=== PATIENT | male | born 1940 | race Caucasian/White ===

== ENCOUNTER 2019-10-17 05:56 | Inpatient (IN) | payer MEDICARE ==
[2019-10-17] MEDS ORDERED: Ketamine 50 MG/ML (10ML VIAL) ONE ×2 (06:09→06:58)
[2019-10-17 06:12] LABS: #Eosinphils 0.1 thou/uL (0.0-0.7); #Lymphocytes 1.5 thou/uL (1.20-3.40); #Monocytes 0.8 thou/uL (0.11-0.59); %Basophils 0.1 % (0.0-1.0); %Eosinophils 0.7 % (0.0-10.0); %Lymphocytes 10.4 % (21.0-51.0); %Monocytes 5.2 % (0.0-10.0); %Neutrophils 83.5 % (42.0-75.0); Hemoglobin 15.6 g/dL (14.0-18.0); Mean Corpuscular HGB CONC 33.9 g/dL (32.0-36.0); Mean Corpuscular Hemoglobin 32.5 pg (27.0-31.0); Mean Platelet Volume 8.2 fL (7.4-10.4); Platelet Count 280 thou/uL (130-400); RBC Distribution Width 12.9 % (11.5-14.5); White Blood Cell (WBC) Count 14.4 thou/uL (4.8-10.8)
[2019-10-17 06:16] LABS: INR-International Normal Ratio 1.2; PTT 31.3 SEC (22.9-36.1); Prothrombin Time 15.5 SEC (12.0-14.7)
[2019-10-17] MEDS ORDERED: Adacel (T-DAP) 0.5 ML SYRINGE ONE (06:17)
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
[2019-10-17 07:07] LABS: ALT (SGPT) 79 U/L (8-55); AST (SGOT) 128 U/L (5-34); Albumin 4.5 g/dL (3.4-4.8); Alkaline Phosphatase 54 U/L (40-110); Anion Gap 24 mmol/L (10-20); BUN (Urea Nitrogen) 17 mg/dL (8.4-25.7); Calc. Creatinine Clearance 0 mL/min (70-130); Calcium 9.3 mg/dL (7.8-10.44); Carbon Dioxide 18 mmol/L (23-31); Chloride 97 mmol/L (98-107); Estimated GFR-MDRD 35; Globulin 2.9 g/dL (2.4-3.5); Glucose 234 mg/dL (83-110); Potassium 3.7 mmol/L (3.5-5.1); Protein, Total 7.4 g/dL (5.8-8.1); Sodium 135 mmol/L (136-145)
[2019-10-17 07:20] LABS: Lactic Acid 4.6 mmol/L (0.5-2.2)
[2019-10-17] MEDS ORDERED: PROPOFOL 20 ML ONE (07:24)
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
--- NOTE | 2019-10-17 08:23 | RAD ---
PORTABLE CHEST 1 VIEW: DATE: 10/17/2019. TIME: 5:59 a.m. FINDINGS/IMPRESSION: Comparison is made with the earlier exam of 5:38 a.m. There has been interval placement of a left-sided central venous catheter with tip in the projection of the SVC. No pneumothoraces are seen. There are patchy opacities in the right lung. POS: [facility]
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
[2019-10-17] MEDS ORDERED: Hydrocortisone Sod Succ/PF 100 mg/2 ml Vial IVP SCH (08:30)
[2019-10-17] MEDS ORDERED: Dextrose 5% in Water 1,000 ML IV PRN ×2 (08:49→09:00)
[2019-10-17] MEDS ORDERED: Dextrose 50% Abboject 50 ML SYRINGE SLOW IVP PRN ×2 (08:49→09:00)
[2019-10-17] MEDS ORDERED: Insulin Regular 300 UNITS/3 ML VIAL SC PRN (08:49)
[2019-10-17] MEDS ORDERED: Cyclobenzaprine 10 MG TAB PO PRN (09:00)
[2019-10-17] MEDS ORDERED: Ondansetron ODT 4 MG TAB PO PRN (09:00)
[2019-10-17] MEDS ORDERED: traMADol HCl 50 MG TAB PO PRN (09:00)
[2019-10-17] MEDS ORDERED: Sodium Chloride 0.9% 1,000 ML IV SCH (09:00)
[2019-10-17] MEDS ORDERED: hydrALAZINE 20 MG/ML VIAL SLOW IVP PRN (09:00)
[2019-10-17] MEDS ORDERED: Famotidine/PF 20 mg/2ml Vial SLOW IVP SCH (09:00)
[2019-10-17] MEDS ORDERED: Ondansetron PF 4 MG/2 ML Vial IVP PRN (09:00)
[2019-10-17] MEDS: Acetaminophen 500 MG TAB PO SCH ×3 (09:48→20:39)
[2019-10-17] MEDS: Sodium Bicarbonate 150 MEQ in Dextrose 5% in Water 1,000 ML IV SCH ×2 (09:48→22:43)
--- NOTE | 2019-10-17 10:28 | RAD ---
RIGHT SHOULDER 2 VIEWS: HISTORY: Status post reduction of shoulder dislocation. COMPARISON: 10/17/2019. FINDINGS: The glenohumeral joint previously noted dislocation has been reduced. Minimally displaced fracture t hrough the mid right clavicle. Patchy alveolar parenchymal change in the right mid lung zone, eviden ce for contusion. IMPRESSION: Reduction of the previously noted anterior subcoracoid dislocation. Evidence for a Hill-Sachs osteoc hondral impaction injury. POS: [facility]
[2019-10-17 10:40] VITALS: BMI 25.2
[2019-10-17 10:42] LABS: Magnesium 2.1 mg/dL (1.6-2.6); Phosphorus 2.9 mg/dL (2.3-4.7)
[2019-10-17] MEDS: Insulin Regular 300 UNITS/3 ML VIAL SC PRN ×2 (11:25→15:58)
[2019-10-17] MEDS: traMADol HCl 50 MG TAB PO PRN ×2 (11:25→16:49)
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
[2019-10-17 12:24] LABS: Lactic Acid 2.2 mmol/L (0.5-2.2)
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
[2019-10-17] MEDS ORDERED: Prevnar 13-Val Conj/PF 0.5 ML SYRINGE IM ONE (12:45)
[2019-10-17] MEDS ORDERED: Iopamidol 370 76% 100 ML VIAL ONE (13:41)
[2019-10-17] MEDS ORDERED: diphenhydrAMINE 50 MG/ML VIAL IVP SCH (17:30)
[2019-10-17] MEDS ORDERED: diphenhydrAMINE 50 MG CAP PO SCH (18:15)
[2019-10-17] MEDS: Gabapentin 100 MG CAP PO SCH (20:40)
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
[2019-10-18] MEDS: Acetaminophen 500 MG TAB PO SCH ×3 (03:08→15:49)
[2019-10-18 05:02] LABS: Anion Gap 9 mmol/L (10-20); BUN (Urea Nitrogen) 21 mg/dL (8.4-25.7); Calc. Creatinine Clearance 53 mL/min (70-130); Calcium 7.7 mg/dL (7.8-10.44); Carbon Dioxide 30 mmol/L (23-31); Chloride 100 mmol/L (98-107); Estimated GFR-MDRD 60; Glucose 106 mg/dL (83-110); Phosphorus 3.6 mg/dL (2.3-4.7); Potassium 3.2 mmol/L (3.5-5.1); Sodium 136 mmol/L (136-145)
[2019-10-18 06:05] LABS: #Lymphocytes 0.7 thou/uL (1.20-3.40); #Monocytes 0.6 thou/uL (0.11-0.59); #Neutrophils 6.2 thou/uL (1.40-6.50); %Basophils 0.3 % (0.0-1.0); %Eosinophils 0.2 % (0.0-10.0); %Lymphocytes 8.7 % (21.0-51.0); %Monocytes 7.4 % (0.0-10.0); %Neutrophils 83.5 % (42.0-75.0); Hemoglobin 10.9 g/dL (14.0-18.0); Mean Corpuscular HGB CONC 35.5 g/dL (32.0-36.0); Mean Corpuscular Hemoglobin 32.8 pg (27.0-31.0); Mean Corpuscular Volume 92.4 fL (78.0-98.0); Mean Platelet Volume 8.8 fL (7.4-10.4); Platelet Count 133 thou/uL (130-400); RBC Distribution Width 13.2 % (11.5-14.5); Red Blood Cell (RBC) Count 3.32 mill/uL (4.70-6.10); White Blood Cell (WBC) Count 7.4 thou/uL (4.8-10.8)
[2019-10-18] MEDS ORDERED: Potassium Phosphate 30 MMOL in Sodium Chloride 0.9% 500 ML IVPB SCH (07:30)
[2019-10-18] MEDS: Famotidine/PF 20 mg/2ml Vial SLOW IVP SCH (09:50)
[2019-10-18] MEDS: Gabapentin 100 MG CAP PO SCH (09:55)
[2019-10-18] MEDS ORDERED: Sodium Chloride 0.9% 1,000 ML IV SCH (16:15)
[2019-10-18] MEDS ORDERED: Acetaminophen 500 MG TAB PO SCH (16:53)
--- NOTE | 2019-10-18 17:03 | RAD ---
KUB INDICATION: NG tube placement COMPARISON: None FINDINGS: Bowel gas: Nonspecific but without overt appearance of obstruction. Lung bases: Clear. Additional findings: Nasogastric tube projects in the region of the gastric fundus. Osseous structures: No acute osseous abnormality is demonstrated. IMPRESSION: 1. Nasogastric tube tip projects in the region of the gastric fundus
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
[2019-10-18] MEDS: Acetaminophen 650 MG/20.3 ML UDCUP PER TUBE SCH (19:30)
[2019-10-18] MEDS: Ibuprofen 100 MG/5 ML UDCUP PO SCH (20:51)
[2019-10-19] MEDS: traMADol HCl 50 MG TAB PO PRN ×2 (03:00→20:17)
[2019-10-19] MEDS: Acetaminophen 650 MG/20.3 ML UDCUP PER TUBE SCH ×4 (03:02→20:01)
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
[2019-10-19 05:41] LABS: #Lymphocytes 0.5 thou/uL (1.20-3.40); #Monocytes 0.6 thou/uL (0.11-0.59); %Basophils 0.5 % (0.0-1.0); %Eosinophils 0.3 % (0.0-10.0); %Lymphocytes 8.2 % (21.0-51.0); %Neutrophils 82.1 % (42.0-75.0); Hemoglobin 10.6 g/dL (14.0-18.0); Mean Corpuscular HGB CONC 34.5 g/dL (32.0-36.0); Mean Corpuscular Hemoglobin 32.4 pg (27.0-31.0); Mean Corpuscular Volume 93.7 fL (78.0-98.0); Mean Platelet Volume 8.1 fL (7.4-10.4); Platelet Count 111 thou/uL (130-400); RBC Distribution Width 13.1 % (11.5-14.5); Red Blood Cell (RBC) Count 3.27 mill/uL (4.70-6.10); White Blood Cell (WBC) Count 6.1 thou/uL (4.8-10.8)
[2019-10-19] MEDS: Ibuprofen 100 MG/5 ML UDCUP PO SCH ×3 (05:42→21:27)
[2019-10-19 06:00] LABS: Anion Gap 8 mmol/L (10-20); BUN (Urea Nitrogen) 18 mg/dL (8.4-25.7); Calc. Creatinine Clearance 64 mL/min (70-130); Calcium 8.3 mg/dL (7.8-10.44); Carbon Dioxide 29 mmol/L (23-31); Chloride 102 mmol/L (98-107); Estimated GFR-MDRD 74; Glucose 118 mg/dL (83-110); Magnesium 2.1 mg/dL (1.6-2.6); Phosphorus 2.6 mg/dL (2.3-4.7); Potassium 3.4 mmol/L (3.5-5.1); Sodium 136 mmol/L (136-145)
[2019-10-19] MEDS ORDERED: Potassium Phosphate 15 MMOL in Sodium Chloride 0.9% 250 ML 250 ML IVPB SCH (08:00)
[2019-10-19] MEDS: Famotidine/PF 20 mg/2ml Vial SLOW IVP SCH (09:13)
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
[2019-10-19] MEDS: Enoxaparin Sodium 40 MG/0.4 ML SYRINGE SC SCH (20:02)
[2019-10-20] MEDS: Acetaminophen 650 MG/20.3 ML UDCUP PER TUBE SCH ×4 (01:35→19:56)
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
[2019-10-20 06:25] LABS: Anion Gap 8 mmol/L (10-20); BUN (Urea Nitrogen) 17 mg/dL (8.4-25.7); Calc. Creatinine Clearance 78 mL/min (70-130); Calcium 8.6 mg/dL (7.8-10.44); Carbon Dioxide 29 mmol/L (23-31); Chloride 104 mmol/L (98-107); Estimated GFR-MDRD Greater than 90; Glucose 92 mg/dL (83-110); Magnesium 1.9 mg/dL (1.6-2.6); Phosphorus 2.2 mg/dL (2.3-4.7); Potassium 3.4 mmol/L (3.5-5.1); Sodium 138 mmol/L (136-145)
[2019-10-20] MEDS: Ibuprofen 100 MG/5 ML UDCUP PO SCH ×3 (06:29→19:57)
[2019-10-20] MEDS ORDERED: Potassium Chloride 20 MEQ in Premix Bag 1 BAG IVPB SCH (07:45)
[2019-10-20] MEDS ORDERED: Potassium Phosphate 30 MMOL in Sodium Chloride 0.9% 500 ML IVPB SCH (07:45)
[2019-10-20] MEDS ORDERED: Potassium Phosphate 30 MMOL in Sodium Chloride 0.9% 250 ML 250 ML IVPB SCH (08:00)
[2019-10-20] MEDS: Ascorbic Acid 500 mg Chewable Tablet PO SCH ×2 (09:18→19:57)
[2019-10-20] MEDS: Famotidine 20 MG TAB PER TUBE SCH ×2 (09:18→19:56)
[2019-10-20] MEDS: Senokot S 8.6-50 MG TAB PO SCH ×2 (09:18→19:57)
[2019-10-20] MEDS: Ferrous Sulfate 325 MG TAB PO SCH ×2 (09:18→17:00)
[2019-10-20] MEDS: Polyethylene Glycol 3350 17 GM Packet PO SCH (09:18)
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
[2019-10-20] MEDS: traMADol HCl 50 MG TAB PO PRN (17:00)
[2019-10-20] MEDS: Enoxaparin Sodium 40 MG/0.4 ML SYRINGE SC SCH (19:57)
[2019-10-20] MEDS ORDERED: Haloperidol Lactate 5 MG/ML VIAL SLOW IVP SCH (21:15)
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
[2019-10-21] MEDS: Acetaminophen 650 MG/20.3 ML UDCUP PER TUBE SCH ×2 (01:31→10:20)
[2019-10-21] MEDS: Ibuprofen 100 MG/5 ML UDCUP PO SCH ×2 (05:25→14:15)
[2019-10-21 06:18] LABS: Anion Gap 12 mmol/L (10-20); BUN (Urea Nitrogen) 16 mg/dL (8.4-25.7); Calc. Creatinine Clearance 76 mL/min (70-130); Calcium 8.8 mg/dL (7.8-10.44); Carbon Dioxide 26 mmol/L (23-31); Chloride 103 mmol/L (98-107); Estimated GFR-MDRD 90; Glucose 90 mg/dL (83-110); Magnesium 1.8 mg/dL (1.6-2.6); Phosphorus 2.8 mg/dL (2.3-4.7); Potassium 3.5 mmol/L (3.5-5.1); Sodium 137 mmol/L (136-145)
[2019-10-21] MEDS: Senokot S 8.6-50 MG TAB PO SCH ×2 (10:18→20:51)
[2019-10-21] MEDS: Ferrous Sulfate 325 MG TAB PO SCH ×2 (10:18→18:35)
[2019-10-21] MEDS: Enoxaparin Sodium 40 MG/0.4 ML SYRINGE SC SCH ×2 (10:19→20:51)
[2019-10-21] MEDS: Polyethylene Glycol 3350 17 GM Packet PO SCH (10:19)
[2019-10-21] MEDS: Ascorbic Acid 500 mg Chewable Tablet PO SCH ×2 (10:19→20:51)
[2019-10-21] MEDS ORDERED: Potassium Chloride 40 MEQ, Magnesium Sulfate 2 GM in Sodium Chloride 0.9% 250 ML 250 ML IVPB SCH (11:30)
[2019-10-21] MEDS ORDERED: Acetaminophen 650 MG/20.3 ML UDCUP PO SCH (12:27)
[2019-10-21] MEDS ORDERED: Acetaminophen 500 MG TAB PO SCH (12:45)
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
[2019-10-21] MEDS: Acetaminophen 500 MG TAB PO SCH (18:35)
[2019-10-21] MEDS: Melatonin 3 MG TAB PO SCH (20:51)
[2019-10-21] MEDS: Ibuprofen 600 MG TAB PO SCH (20:55)
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
[2019-10-22] MEDS: Acetaminophen 500 MG TAB PO SCH ×4 (00:26→18:09)
[2019-10-22] MEDS ORDERED: Haloperidol Lactate 5 MG/ML VIAL SLOW IVP SCH (00:30)
[2019-10-22] MEDS ORDERED: Lorazepam 2 MG/ML VIAL SLOW IVP SCH (01:00)
[2019-10-22] MEDS ORDERED: diphenhydrAMINE 50 MG/ML VIAL IVP SCH (01:00)
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
[2019-10-22] MEDS: Ibuprofen 600 MG TAB PO SCH ×3 (06:44→21:08)
[2019-10-22 07:03] LABS: Anion Gap 11 mmol/L (10-20); BUN (Urea Nitrogen) 18 mg/dL (8.4-25.7); Calc. Creatinine Clearance 77 mL/min (70-130); Carbon Dioxide 26 mmol/L (23-31); Chloride 104 mmol/L (98-107); Estimated GFR-MDRD Greater than 90; Glucose 88 mg/dL (83-110); Magnesium 2.1 mg/dL (1.6-2.6); Phosphorus 3.5 mg/dL (2.3-4.7); Potassium 3.6 mmol/L (3.5-5.1); Sodium 137 mmol/L (136-145)
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
--- NOTE | 2019-10-22 11:13 | RAD ---
RIGHT ANKLE 3 VIEW: HISTORY: Fall, right ankle pain and swelling. FINDINGS/IMPRESSION: Soft tissue swelling is present. The ankle mortise is maintained. No acute fracture or dislocation is identified. POS: [facility]
--- NOTE | 2019-10-22 11:23 | RAD ---
3 views of the right foot: 10/22/2019 COMPARISON: None HISTORY: Swelling, fall, trauma FINDINGS: There is moderate degenerative change at the first metatarsal-phalangeal joint with joint s pace narrowing and osteophyte formation. There is widening of the Lisfranc ligament with subcentimeter osseous fragments within the widened Li sfranc interval suggesting small fractures emanating from the medial cuneiform and base of second metatarsal. Second through fifth metatarsal base is laterally subluxed. IMPRESSION: Fracture dislocation at the Lisfranc interval with lateral subluxation of the second thro ugh fifth metatarsal bases. Orthopedic consultation advised.
[2019-10-22] MEDS: Enoxaparin Sodium 30 MG/0.3 ML SYRINGE SC SCH ×2 (11:27→21:08)
[2019-10-22] MEDS: Magnesium Oxide 400 MG TAB PO SCH (11:28)
[2019-10-22] MEDS: Senokot S 8.6-50 MG TAB PO SCH ×2 (11:29→21:07)
[2019-10-22] MEDS: Ascorbic Acid 500 mg Chewable Tablet PO SCH ×2 (11:29→21:07)
[2019-10-22] MEDS: Polyethylene Glycol 3350 17 GM Packet PO SCH (11:29)
[2019-10-22] MEDS: Ferrous Sulfate 325 MG TAB PO SCH ×2 (11:32→18:09)
[2019-10-22] MEDS ORDERED: Stress 600 With Zinc 1 TAB PO SCH ×3 (12:30→21:00)
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
--- NOTE | 2019-10-22 19:00 | RAD ---
RIGHT ELBOW FOUR VIEWS: 10/22/19 HISTORY: Elbow pain post fall. There is no signs of fracture, dislocation, or joint effusion. IMPRESSION: Negative right elbow. POS: [facility]
--- NOTE | 2019-10-22 20:37 | RAD ---
RIGHT SHOULDER TWO VIEWS: 10/22/19 HISTORY: Shoulder injury post fall. There is a mid shaft clavicular fracture. Some deformity to the more distal aspect of the clavicle wh ich is probably just projectional. There is some arthritic changes of the AC joint. Also some degener ative changes of the glenohumeral joint space. Bones appear somewhat demineralized. Parenchymal lung changes in the right lung actually appear improved as compared to a 10/17/19 exam. The fracture appears slightly more angulated with the distal aspect of fracture slightly more superiorly angulated than on the prior exam. IMPRESSION: 1. Mid shaft clavicular fracture slightly increased in angulation as compared to the prior study . 2. Diffuse bone demineralization. 3. Some reduction in the parenchymal change in the right lung as compared to the prior study. Th e right sided rib fracture is somewhat difficult to appreciate on plain film. POS: [facility]
[2019-10-22] MEDS: Melatonin 3 MG TAB PO SCH (21:06)
[2019-10-23] MEDS: Acetaminophen 500 MG TAB PO SCH ×4 (00:21→17:55)
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
[2019-10-23] MEDS: Ibuprofen 600 MG TAB PO SCH ×3 (06:10→20:16)
[2019-10-23 06:30] LABS: Hemoglobin 9.7 g/dL (14.0-18.0); Mean Corpuscular HGB CONC 34.6 g/dL (32.0-36.0); Mean Corpuscular Hemoglobin 32.6 pg (27.0-31.0); Mean Corpuscular Volume 94.1 fL (78.0-98.0); Mean Platelet Volume 7.4 fL (7.4-10.4); Platelet Count 207 thou/uL (130-400); RBC Distribution Width 12.9 % (11.5-14.5); Red Blood Cell (RBC) Count 2.97 mill/uL (4.70-6.10); White Blood Cell (WBC) Count 4.9 thou/uL (4.8-10.8)
[2019-10-23 06:38] LABS: Anion Gap 10 mmol/L (10-20); BUN (Urea Nitrogen) 18 mg/dL (8.4-25.7); Calc. Creatinine Clearance 77 mL/min (70-130); Calcium 8.3 mg/dL (7.8-10.44); Carbon Dioxide 27 mmol/L (23-31); Chloride 105 mmol/L (98-107); Estimated GFR-MDRD Greater than 90; Glucose 86 mg/dL (83-110); Magnesium 2.1 mg/dL (1.6-2.6); Phosphorus 3.1 mg/dL (2.3-4.7); Potassium 3.8 mmol/L (3.5-5.1); Sodium 138 mmol/L (136-145)
[2019-10-23 06:42] LABS: Band 3 % (5-11); Eosinophils 3 % (0-10); Lymphocytes 22 % (21-51); MDiff Complete? YES; Metamyelocyte 1 % (0-0); Monocytes 7 % (0-10); Neutrophil 62 % (42-75); Platelet Morphology Comment Appears Adequate
[2019-10-23] MEDS: Polyethylene Glycol 3350 17 GM Packet PO SCH (09:46)
[2019-10-23] MEDS: Senokot S 8.6-50 MG TAB PO SCH ×2 (09:47→20:15)
[2019-10-23] MEDS: Ferrous Sulfate 325 MG TAB PO SCH ×2 (09:47→17:56)
[2019-10-23] MEDS: Ascorbic Acid 500 mg Chewable Tablet PO SCH ×2 (09:47→20:15)
[2019-10-23] MEDS: Stress 600 With Zinc 1 TAB PO SCH (09:47)
[2019-10-23] MEDS: Cyanocobalamin (Vitamin B-12) 1,000 MCG TAB PO SCH (09:48)
[2019-10-23] MEDS: Magnesium Oxide 400 MG TAB PO SCH (09:48)
[2019-10-23] MEDS: Enoxaparin Sodium 30 MG/0.3 ML SYRINGE SC SCH ×2 (09:49→20:15)
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
[2019-10-23] MEDS: Melatonin 3 MG TAB PO SCH (20:15)
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
[2019-10-24] MEDS: Acetaminophen 500 MG TAB PO SCH ×5 (00:19→23:17)
[2019-10-24] MEDS: Ibuprofen 600 MG TAB PO SCH ×2 (06:39→14:18)
[2019-10-24 06:45] LABS: #Eosinphils 0.2 thou/uL (0.0-0.7); #Lymphocytes 0.7 thou/uL (1.20-3.40); #Monocytes 0.7 thou/uL (0.11-0.59); #Neutrophils 3.6 thou/uL (1.40-6.50); %Basophils 0.7 % (0.0-1.0); %Eosinophils 3.2 % (0.0-10.0); %Lymphocytes 13.7 % (21.0-51.0); %Monocytes 12.6 % (0.0-10.0); %Neutrophils 69.8 % (42.0-75.0); Hemoglobin 10.1 g/dL (14.0-18.0); Mean Corpuscular Hemoglobin 32.9 pg (27.0-31.0); Mean Corpuscular Volume 93.9 fL (78.0-98.0); Mean Platelet Volume 7.4 fL (7.4-10.4); Platelet Count 276 thou/uL (130-400); RBC Distribution Width 13.2 % (11.5-14.5); Red Blood Cell (RBC) Count 3.07 mill/uL (4.70-6.10); White Blood Cell (WBC) Count 5.2 thou/uL (4.8-10.8)
[2019-10-24 06:57] LABS: Anion Gap 10 mmol/L (10-20); BUN (Urea Nitrogen) 22 mg/dL (8.4-25.7); Calc. Creatinine Clearance 76 mL/min (70-130); Calcium 8.4 mg/dL (7.8-10.44); Carbon Dioxide 25 mmol/L (23-31); Chloride 105 mmol/L (98-107); Estimated GFR-MDRD 90; Glucose 85 mg/dL (83-110); Phosphorus 3.5 mg/dL (2.3-4.7); Potassium 3.8 mmol/L (3.5-5.1); Sodium 136 mmol/L (136-145)
[2019-10-24] MEDS ORDERED: Fentanyl 100 MCG/2 ML VIAL ONE ×2 (08:13→08:39)
[2019-10-24] MEDS ORDERED: PROPOFOL 200 MG/20 ML VIAL ONE (09:45)
[2019-10-24] MEDS ORDERED: Bupivacaine HCl 0.5%/Epinephrine 1:200,000/PF 30 ml Vial ONE (09:45)
[2019-10-24] MEDS ORDERED: PHENYLEPHRINE-NS 100 MCG/ML 10 ML SYRINGE ONE (09:45)
[2019-10-24] MEDS ORDERED: Ondansetron PF 4 MG/2 ML Vial ONE (09:45)
[2019-10-24] MEDS ORDERED: Lidocaine 1% PF 5 ML VIAL ONE (09:45)
[2019-10-24] MEDS ORDERED: ePHEDrine 50 MG/ML VIAL ONE (09:45)
[2019-10-24] MEDS ORDERED: Dexamethasone 20 MG/5 ML VIAL ONE (09:45)
[2019-10-24] MEDS ORDERED: Promethazine HCl 25 MG/ML VIAL IM PRN (10:01)
[2019-10-24] MEDS ORDERED: PACU-Morphine 4MG/ML VIAL SLOW IVP PRN (10:01)
[2019-10-24] MEDS: Ferrous Sulfate 325 MG TAB PO SCH ×2 (10:30→17:07)
[2019-10-24] MEDS: Cyanocobalamin (Vitamin B-12) 1,000 MCG TAB PO SCH (10:30)
[2019-10-24] MEDS: Ascorbic Acid 500 mg Chewable Tablet PO SCH ×2 (10:30→20:56)
[2019-10-24] MEDS: Enoxaparin Sodium 30 MG/0.3 ML SYRINGE SC SCH ×2 (10:31→20:56)
[2019-10-24] MEDS: Senokot S 8.6-50 MG TAB PO SCH ×2 (10:32→20:56)
[2019-10-24] MEDS: Polyethylene Glycol 3350 17 GM Packet PO SCH (10:32)
[2019-10-24] MEDS: Magnesium Oxide 400 MG TAB PO SCH (10:32)
[2019-10-24] MEDS: Stress 600 With Zinc 1 TAB PO SCH (10:32)
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
--- NOTE | 2019-10-24 12:16 | RAD ---
RIGHT FOOT 3 VIEWS: Date: 10/24/2019 HISTORY: Intraoperative films. FINDINGS: These films show stabilization at the level of the Lisfranc joint. Orthopedic screws are seen at the level of the base of the first and second metatarsals and adjacent cuneiforms and pins placed at the level of the more lateral cuneiform. Bony alignment appears satisfactory on these C-arm views. IMPRESSION: Postoperative changes. POS: RODRICK
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
[2019-10-24] MEDS: CEFAZOLIN 2 GM in Premix Bag 1 BAG IVPB SCH ×4 (14:18→21:00)
[2019-10-24] MEDS: Melatonin 3 MG TAB PO SCH (20:56)
[2019-10-24] MEDS: Ibuprofen 200 MG TAB PO SCH (21:01)
[2019-10-24] MEDS ORDERED: Haloperidol Lactate 5 MG/ML VIAL ONE (23:09)
[2019-10-24] MEDS ORDERED: diphenhydrAMINE 50 MG/ML VIAL ONE (23:09)
[2019-10-24] MEDS ORDERED: diphenhydrAMINE 50 MG/ML VIAL IVP SCH (23:15)
[2019-10-24] MEDS ORDERED: Haloperidol Lactate 5 MG/ML VIAL SLOW IVP SCH (23:15)
[2019-10-25] MEDS ORDERED: Lorazepam 2 MG/ML VIAL SLOW IVP SCH (00:30)
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
[2019-10-25] MEDS: Acetaminophen 500 MG TAB PO SCH ×4 (05:06→23:45)
[2019-10-25] MEDS: Ibuprofen 200 MG TAB PO SCH ×3 (05:07→21:32)
[2019-10-25 06:50] LABS: #Eosinphils 0.1 thou/uL (0.0-0.7); #Lymphocytes 0.8 thou/uL (1.20-3.40); #Monocytes 0.8 thou/uL (0.11-0.59); #Neutrophils 6.2 thou/uL (1.40-6.50); %Basophils 0.2 % (0.0-1.0); %Lymphocytes 10.1 % (21.0-51.0); %Monocytes 9.8 % (0.0-10.0); Hemoglobin 9.5 g/dL (14.0-18.0); Mean Corpuscular HGB CONC 34.2 g/dL (32.0-36.0); Mean Corpuscular Hemoglobin 32.1 pg (27.0-31.0); Mean Corpuscular Volume 93.9 fL (78.0-98.0); Mean Platelet Volume 7.4 fL (7.4-10.4); Platelet Count 327 thou/uL (130-400); RBC Distribution Width 13.2 % (11.5-14.5); Red Blood Cell (RBC) Count 2.97 mill/uL (4.70-6.10); White Blood Cell (WBC) Count 7.8 thou/uL (4.8-10.8)
[2019-10-25 07:05] LABS: Anion Gap 13 mmol/L (10-20); BUN (Urea Nitrogen) 22 mg/dL (8.4-25.7); Calc. Creatinine Clearance 80 mL/min (70-130); Calcium 8.4 mg/dL (7.8-10.44); Carbon Dioxide 24 mmol/L (23-31); Chloride 106 mmol/L (98-107); Estimated GFR-MDRD Greater than 90; Glucose 89 mg/dL (83-110); Magnesium 2.1 mg/dL (1.6-2.6); Phosphorus 3.7 mg/dL (2.3-4.7); Potassium 4.1 mmol/L (3.5-5.1); Sodium 139 mmol/L (136-145)
[2019-10-25] MEDS: Magnesium Oxide 400 MG TAB PO SCH (10:24)
[2019-10-25] MEDS: Ferrous Sulfate 325 MG TAB PO SCH ×2 (10:24→18:17)
[2019-10-25] MEDS: Enoxaparin Sodium 30 MG/0.3 ML SYRINGE SC SCH ×2 (10:25→21:32)
[2019-10-25] MEDS: Ascorbic Acid 500 mg Chewable Tablet PO SCH ×2 (10:25→21:31)
[2019-10-25] MEDS: Cyanocobalamin (Vitamin B-12) 1,000 MCG TAB PO SCH (10:25)
[2019-10-25] MEDS: Stress 600 With Zinc 1 TAB PO SCH (10:25)
[2019-10-25] MEDS: Senokot S 8.6-50 MG TAB PO SCH ×2 (10:25→21:33)
[2019-10-25] MEDS: Polyethylene Glycol 3350 17 GM Packet PO SCH (10:26)
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
[2019-10-25] MEDS: Melatonin 3 MG TAB PO SCH (21:32)
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
[2019-10-26] MEDS: Acetaminophen 500 MG TAB PO SCH ×3 (06:16→17:25)
[2019-10-26] MEDS: Ibuprofen 200 MG TAB PO SCH ×3 (06:16→21:18)
--- NOTE | 2019-10-26 07:33 | OP ---
DATE OF PROCEDURE: 10/23/2019 PREPROCEDURE DIAGNOSIS: Right foot Lisfranc fracture. POSTPROCEDURE DIAGNOSIS: Right foot Lisfranc fracture. PROCEDURE PERFORMED: Application of short-leg splint to right foot and leg. INDICATIONS FOR PROCEDURE: Subacute diagnosis of a right Lisfranc fracture of the foot. ANESTHESIA: None required. DESCRIPTION OF PROCEDURE: Informed consent was obtained. The patient was positioned appropriately in supine position. The right leg was then exposed. I used a 3-inch stockinette overwrapped with Webril and a 3-inch Ortho-Glass was applied posteriorly and comfortably wrapped with 4-inch and 6-inch Octavio and was allowed to cure. The patient tolerated well without any complication. Job ID: [id number]
[2019-10-26] MEDS: Magnesium Oxide 400 MG TAB PO SCH (08:47)
[2019-10-26] MEDS: Ferrous Sulfate 325 MG TAB PO SCH ×2 (08:47→17:25)
[2019-10-26] MEDS: Ascorbic Acid 500 mg Chewable Tablet PO SCH ×2 (08:47→21:17)
[2019-10-26] MEDS: Enoxaparin Sodium 30 MG/0.3 ML SYRINGE SC SCH ×2 (08:48→21:18)
[2019-10-26] MEDS: Cyanocobalamin (Vitamin B-12) 1,000 MCG TAB PO SCH (08:48)
[2019-10-26] MEDS: Senokot S 8.6-50 MG TAB PO SCH ×2 (08:48→21:18)
[2019-10-26] MEDS: Polyethylene Glycol 3350 17 GM Packet PO SCH (08:48)
[2019-10-26] MEDS: Stress 600 With Zinc 1 TAB PO SCH (08:48)
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
[2019-10-26] MEDS: Melatonin 3 MG TAB PO SCH (21:17)
[2019-10-27] MEDS: Acetaminophen 500 MG TAB PO SCH ×4 (00:07→18:36)
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
[2019-10-27] MEDS: Ibuprofen 200 MG TAB PO SCH ×3 (05:35→20:46)
[2019-10-27] MEDS: Polyethylene Glycol 3350 17 GM Packet PO SCH (08:38)
[2019-10-27] MEDS: Magnesium Oxide 400 MG TAB PO SCH (08:39)
[2019-10-27] MEDS: Cyanocobalamin (Vitamin B-12) 1,000 MCG TAB PO SCH (08:39)
[2019-10-27] MEDS: Ascorbic Acid 500 mg Chewable Tablet PO SCH ×2 (08:39→20:46)
[2019-10-27] MEDS: Stress 600 With Zinc 1 TAB PO SCH (08:39)
[2019-10-27] MEDS: Senokot S 8.6-50 MG TAB PO SCH ×2 (08:39→20:46)
[2019-10-27] MEDS: Ferrous Sulfate 325 MG TAB PO SCH ×2 (08:40→18:36)
[2019-10-27] MEDS: Enoxaparin Sodium 30 MG/0.3 ML SYRINGE SC SCH ×2 (08:40→20:47)
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
[2019-10-27] MEDS: Melatonin 3 MG TAB PO SCH (20:46)
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
[2019-10-28] MEDS: Acetaminophen 500 MG TAB PO SCH ×5 (01:01→23:32)
[2019-10-28] MEDS: Ibuprofen 200 MG TAB PO SCH ×3 (06:17→23:32)
[2019-10-28] MEDS: Polyethylene Glycol 3350 17 GM Packet PO SCH (08:36)
[2019-10-28] MEDS: Ferrous Sulfate 325 MG TAB PO SCH ×2 (08:36→17:49)
[2019-10-28] MEDS: Ascorbic Acid 500 mg Chewable Tablet PO SCH ×2 (08:37→20:52)
[2019-10-28] MEDS: Senokot S 8.6-50 MG TAB PO SCH ×2 (08:37→20:53)
[2019-10-28] MEDS: Magnesium Oxide 400 MG TAB PO SCH (08:37)
[2019-10-28] MEDS: Stress 600 With Zinc 1 TAB PO SCH (08:37)
[2019-10-28] MEDS: Enoxaparin Sodium 30 MG/0.3 ML SYRINGE SC SCH ×2 (08:38→20:52)
[2019-10-28] MEDS: Cyanocobalamin (Vitamin B-12) 1,000 MCG TAB PO SCH (08:38)
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
[2019-10-28] MEDS: Melatonin 3 MG TAB PO SCH (20:52)
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
[2019-10-29] MEDS: Ibuprofen 200 MG TAB PO SCH ×2 (05:51→13:46)
[2019-10-29] MEDS: Acetaminophen 500 MG TAB PO SCH ×3 (05:51→18:07)
[2019-10-29] MEDS ORDERED: traMADol HCl 50 MG TAB PO PRN (07:46)
[2019-10-29] MEDS: Senokot S 8.6-50 MG TAB PO SCH ×2 (08:32→20:08)
[2019-10-29] MEDS: Polyethylene Glycol 3350 17 GM Packet PO SCH (08:32)
[2019-10-29] MEDS: Ascorbic Acid 500 mg Chewable Tablet PO SCH ×2 (08:32→20:08)
[2019-10-29] MEDS: Cyanocobalamin (Vitamin B-12) 1,000 MCG TAB PO SCH (08:33)
[2019-10-29] MEDS: Magnesium Oxide 400 MG TAB PO SCH (08:33)
[2019-10-29] MEDS: Enoxaparin Sodium 30 MG/0.3 ML SYRINGE SC SCH ×2 (08:33→20:08)
[2019-10-29] MEDS: Ferrous Sulfate 325 MG TAB PO SCH ×2 (08:33→18:07)
[2019-10-29] MEDS: Stress 600 With Zinc 1 TAB PO SCH (08:33)
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
[2019-10-29] MEDS ORDERED: Fentanyl 100 MCG/2 ML VIAL ONE (13:47)
[2019-10-29] MEDS: Melatonin 3 MG TAB PO SCH (20:08)
[2019-10-30] MEDS: Acetaminophen 500 MG TAB PO SCH ×5 (00:05→23:08)
[2019-10-30] MEDS: Ibuprofen 200 MG TAB PO SCH ×4 (00:05→23:08)
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
[2019-10-30] MEDS: Ferrous Sulfate 325 MG TAB PO SCH ×2 (08:40→17:35)
[2019-10-30] MEDS: Stress 600 With Zinc 1 TAB PO SCH (08:40)
[2019-10-30] MEDS: Magnesium Oxide 400 MG TAB PO SCH (08:40)
[2019-10-30] MEDS: Ascorbic Acid 500 mg Chewable Tablet PO SCH ×2 (08:41→19:24)
[2019-10-30] MEDS: Senokot S 8.6-50 MG TAB PO SCH ×2 (08:42→19:24)
[2019-10-30] MEDS: Enoxaparin Sodium 30 MG/0.3 ML SYRINGE SC SCH ×2 (08:42→19:24)
[2019-10-30] MEDS: Cyanocobalamin (Vitamin B-12) 1,000 MCG TAB PO SCH (08:42)
[2019-10-30] MEDS: Polyethylene Glycol 3350 17 GM Packet PO SCH (08:42)
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
[2019-10-30] MEDS: Melatonin 3 MG TAB PO SCH (19:24)
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
[2019-10-31] MEDS: Acetaminophen 500 MG TAB PO SCH ×3 (05:55→17:46)
[2019-10-31] MEDS: Ibuprofen 200 MG TAB PO SCH ×2 (05:55→14:40)
[2019-10-31] MEDS: Ferrous Sulfate 325 MG TAB PO SCH ×2 (08:38→17:46)
[2019-10-31] MEDS: Ascorbic Acid 500 mg Chewable Tablet PO SCH (08:38)
[2019-10-31] MEDS: Senokot S 8.6-50 MG TAB PO SCH (08:39)
[2019-10-31] MEDS: Magnesium Oxide 400 MG TAB PO SCH (08:39)
[2019-10-31] MEDS: Stress 600 With Zinc 1 TAB PO SCH (08:39)
[2019-10-31] MEDS: Cyanocobalamin (Vitamin B-12) 1,000 MCG TAB PO SCH (08:39)
[2019-10-31] MEDS: Enoxaparin Sodium 30 MG/0.3 ML SYRINGE SC SCH (08:40)
[2019-10-31] MEDS: Polyethylene Glycol 3350 17 GM Packet PO SCH (08:40)
[2019-10-31 16:15] VITALS: BP 100/66; TEMP 98.1
--- NOTE | 2019-10-31 17:14 | PQF ---
CLINICAL DOCUMENTATION IMPROVEMENT CLARIFICATION FORM: ICD-10 Updated PLEASE DO AN ADDENDUM TO THE PROGRESS NOTE WITH ANY DOCUMENTATION UPDATES OR ADDITIONS AND CARRY THROUGH TO DC SUMMARY. THANK YOU. DATE: 10/31/19 ATTN: Emely TREJO PA-C / Marta CYR PA-C Please exercise your independent, professional judgment in responding to the clarification form. Clinical indicators are provided on the bottom of this form for your review Please check appropriate box(s): [ ] Acute blood loss anemia [ X ] Post-op anemia related to acute blood loss [ ] Anemia: [ ] Aplastic [ ] Nutritional [ ] Drug induced (specify) ___ [ ] Hemolytic [ ] Hereditary [ ] Acquired [ ] Autoimmune [ ] Non-autoimmune [ ] Enzyme disorder [ ] Chronic Anemia: [ ] Blood loss [ ] Hemolytic [ ] Simple [ ] Due to Vitamin B12 Deficiency [ ] Other [ ] Anemia of Chronic Disease (please specify) [ ] Other diagnosis [ ] Unable to determine In addition, please specify: Present on Admission (POA): [ ] Yes [ X ] No [ ] Unable to determine For continuity of documentation, please document condition throughout progress notes and discharge summary. Thank You. CLINICAL INDICATORS - SIGNS / SYMPTOMS / LABS / RESULTS AND LOCATION IN EMR HGN/HCT 10/17: 10.9 / 30.7 HGN/HCT 10/24: 9.5 / 27.9 RISKS: ORIF 10/23 TREATMENT: SERIAL LABS BLOOD TRANSFUSION (This form is maintained as a part of the permanent medical record) 2014 [employer]. All Rights Reserved [email or web address] Office: [phone] ADAM
--- NOTE | 2019-10-31 17:21 | PQF ---
CLINICAL DOCUMENTATION IMPROVEMENT CLARIFICATION FORM: ICD-10 Updated PLEASE DO AN ADDENDUM TO THE PROGRESS NOTE WITH ANY DOCUMENTATION UPDATES OR ADDITIONS AND CARRY THROUGH TO DC SUMMARY. THANK YOU. DATE: 10/31/19 ATTN: Marta CYR PA-C Please exercise your independent, professional judgment in responding to the clarification form. Clinical indicators are provided on the bottom of this form for your review Please check appropriate box(s): [ ] Alzheimers disease [ ] Early onset [ ] Late onset [ ] Other [ ] Alzheimers disease with behavioral disturbances [ ] Aggressive[ ] Combative [ ] Violent [ ] Other [ x ] Alzheimers disease with dementia [ ] Acute[ x ] Sub acute[ ] With wandering [ ] Alzheimers disease with associated delirium [ ] Other diagnosis [ ] Unable to determine In addition, please specify: Present on Admission (POA): [x ] Yes [ ] No [ ] Unable to determine For continuity of documentation, please document condition throughout progress notes and discharge summary. Thank You. CLINICAL INDICATORS - SIGNS / SYMPTOMS / LABS / RESULTS AND LOCATION IN EMR NURSES NOTE 10/16: "PT CONTINUALLY PULLING AT C COLLAR, FAROOQ, IV, REQUIRING CONTINUAL BS REDIRECTION PER RN. MORE AGITATED W/ FAMILY." RISKS: H/O DEMENTIA (PROGRESS NOTE 10/30) CONCUSSION (PROGRESS NOTE 10/30) TREATMENT: WRIST RESTRAINTS (NURSES NOTE 10/16) SITTER (NURSES NOTE 10/16) SEROQUEL (10/21-PRESENT) (This form is maintained as a part of the permanent medical record) 2014 [employer]. All Rights Reserved [email or web address] Office: [phone] [facility]
== END 2019-10-31 19:30 | DRG 503 ==
LOC: ERS 05:56 → CCU 07:26 → SURG A 18:55
PROVIDERS: ADMIT Surgery; ATTEND Surgery
PROC: 05H633Z Insertion of Infusion Device into Left Subclavian Vein, Percutaneous Approach (ICD-10-PCS; principal; 2019-10-17)
PROC: 0RSJXZZ Reposition Right Shoulder Joint, External Approach (ICD-10-PCS; 2019-10-17)
PROC: 0QSN04Z Reposition Right Metatarsal with Internal Fixation Device, Open Approach (ICD-10-PCS; 2019-10-24)
DX: S32.048A Other fracture of fourth lumbar vertebra, initial encounter for closed fracture (principal); R40.2124 Coma scale, eyes open, to pain, 24 hours or more after hospital admission; S06.0X1A Concussion with loss of consciousness of 30 minutes or less, initial encounter; S27.329A Contusion of lung, unspecified, initial encounter; S22.41XA Multiple fractures of ribs, right side, initial encounter for closed fracture; S22.20XA Unspecified fracture of sternum, initial encounter for closed fracture; F02.81 Dementia in other diseases classified elsewhere, unspecified severity, with behavioral disturbance; D62 Acute posthemorrhagic anemia; F05 Delirium due to known physiological condition; S32.058A Other fracture of fifth lumbar vertebra, initial encounter for closed fracture; V89.2XXA Person injured in unspecified motor-vehicle accident, traffic, initial encounter; S42.001A Fracture of unspecified part of right clavicle, initial encounter for closed fracture; S43.084A Other dislocation of right shoulder joint, initial encounter; R40.2421 Glasgow coma scale score 9-12, in the field [EMT or ambulance]; R40.2132 Coma scale, eyes open, to sound, at arrival to emergency department; R40.2242 Coma scale, best verbal response, confused conversation, at arrival to emergency department; R40.2362 Coma scale, best motor response, obeys commands, at arrival to emergency department; R40.2364 Coma scale, best motor response, obeys commands, 24 hours or more after hospital admission; R40.2234 Coma scale, best verbal response, inappropriate words, 24 hours or more after hospital admission; S20.219A Contusion of unspecified front wall of thorax, initial encounter; E87.6 Hypokalemia; E83.39 Other disorders of phosphorus metabolism; G30.9 Alzheimer's disease, unspecified; S92.351A Displaced fracture of fifth metatarsal bone, right foot, initial encounter for closed fracture
CPT/HCPCS: 36415; 36416; 36430; 36556; 51702; 70450; 71045; 71260; 72125; 72170; 74018; 74177; 76000; 80048; 80053; 82533; 83605; 83735; 84100; 85007; 85025; 85027; 85610; 85730; 86850; 86900; 86901; 90471; 90715; 93005; 93010; 94640; 94760; 96365; 96374; 99292; C1713; G0390; J0360; J0670; J0690; J1100; J1200; J1630; J1642; J1650; J1720; J1815; J2001; J2060; J2405; J2704; J3010; J3475; J3480; J3490; J7050; J7070; J7620; P9016; Q0163; Q9967; S0028